=== PATIENT | female | born 1985 | race Caucasian/White ===

== ENCOUNTER 2017-01-31 08:42 | Emergency (ER) | payer OTHER, SELFPAY ==
[~2017-01-31] VITALS: Ht 162.6 cm; Wt 71.8 kg
[2017-01-31] MEDS ORDERED: SODIUM CHLORIDE FLUSH 10ML SYR IVF ONE (09:30)
[2017-01-31] MEDS ORDERED: SODIUM CHLORIDE 0.9% 1,000ML IVBOLUS ONE (09:30)
[2017-01-31] MEDS ORDERED: ONDANSETRON 2MG/ML, 2ML IVPush ONE (09:30)
[2017-01-31] MEDS ORDERED: MORPHINE SULFATE 4 MG/ML, 1ML ONE ×2 (09:54→11:05)
[2017-01-31] MEDS ORDERED: ONDANSETRON 2MG/ML, 2ML ONE (09:54)
[2017-01-31] MEDS: MORPHINE SULFATE 4 MG/ML, 1ML IVPush PRN ×2 (10:00→11:08)
[2017-01-31 10:22] LABS: BLOOD UREA NITROGEN 9 mg/dL (7-18)
[2017-01-31 10:26] LABS: ASPARTATE AMINO TRANSFERASE 14 U/L (15-37)
[2017-01-31] MEDS ORDERED: OMNIPAQUE 350 MG/ML, 100ML BOTTLE ONE (12:30)
[2017-01-31] MEDS ORDERED: KETOROLAC 30 MG/1 ML IVPush ONE (13:00)
[2017-01-31] MEDS ORDERED: KETOROLAC 30 MG/1 ML ONE (13:15)
[2017-01-31 13:26] VITALS: BP 113/57
== END 2017-01-31 13:29 | disposition home or self-care (01) ==
LOC: ED 08:58
DX: R10.2 Pelvic and perineal pain (principal); R11.0 Nausea; N93.9 Abnormal uterine and vaginal bleeding, unspecified; N80.9 Endometriosis, unspecified; E06.3 Autoimmune thyroiditis; F32.9 Major depressive disorder, single episode, unspecified; Z98.51 Tubal ligation status
CPT/HCPCS: 36415; 74177; 76830; 80053; 81003; 84703; 85025; 96361; 96374; 96375; 96376; 99285; J1885; J2405; J7030; Q9967

== ENCOUNTER 2019-01-28 07:45 | Outpatient (CLI) | payer OTHER | END 2019-01-28 23:59 | disposition home or self-care (01) | LOC: CVU 07:45 → CFH 23:59 | PROVIDERS: ATTEND Internal Medicine Cardiovascular Disease | DX: R07.89 Other chest pain (principal); R94.31 Abnormal electrocardiogram [ECG] [EKG]; R55 Syncope and collapse | CPT/HCPCS: 78452; 93017; 93306; A9502; J2785 ==